=== PATIENT | male | born 1960 | race Caucasian/White ===

== ENCOUNTER → 2017-11-26 | Day surgery (SDC) | payer OTHER ==
[2017-11-19 08:19] VITALS: Ht 167.6 cm; Wt 111.4 kg
[~2017-11-26] VITALS: Ht 167.6 cm; Wt 111.4 kg
[~2017-11-26] MED LIST: ASPCH81X PO; CHOL1000 PO; CYAN100020 PO; DEXAMETHASONE SOD INJ 4 MG/ML VIAL ONE; GLIP-199 PO; LIDOCAINE HCL 1% MPF 5 ML VIAL ONE; LINA1TAB PO; LISI20TA3 PO; METF-384 PO; SIMV80TA2 PO; SODIUM CHLORIDE 0.9% 1000ML 1,000 ML IV SCH
--- NOTE | 2017-11-26 08:11 | History & Physical Bridge - [place] ---
H&P Re-Evaluation Bridge Note: I have examined the patient, reviewed the History & Physical and in the interval since the performance of the History & Physical I have noted the following changes of clinical significance: No changes noted
--- NOTE | 2017-11-26 08:31 | [facility] Post Operative Brief Note ---
Immediate Operative Summary Operative Date Nov 26, 2017. Pre-Operative Diagnosis Facet Arthropathy L5-S1 Bilateral Post-Operative Diagnosis same Procedure(s) Performed Bilateral L5-S1 Facet Injections Surgeon Dr. Francisca Siddiqui Inspector Casing Surgeon(s) 0 Estimated Blood Loss 0 Findings Consistent with Post-Op Diagnosis Specimens none Anesthesia Type Local
--- NOTE | 2017-11-26 08:32 | Discharge Instructions-SurgCtr ---
Discharge Instructions Date of Service Nov 26, 2017. Visit Reason for Visit: Arthropathy Of Spinal Facet Joint, Lumbar Spondylo Discharge Discharge Diagnosis / Problem: same Discharge Goals Goal(s): Improve function Activity Recommendations Activity Limitations: as noted below Lifting Limitations: gradually increase as tolerated Anesthesia . Post Anesthesia Instructions: If you have had General Anesthesia or IV Sedation: * Do not drive today. * Resume driving when surgeon permits. * Do not make important decisions or sign legal documents today. * Call surgeon for: 1. Temperature elevations greater than 101 degrees F. 2. Uncontrollable pain. 3. Excessive bleeding. 4. Persistent nausea and vomiting. 5. Medication intolerance (nausea, vomiting or rash). * For nausea and vomiting use only clear liquids such as: tea, soda, bouillon until nausea subsides, then gradually increase diet as tolerated. * If you have any concerns or questions, call your surgeon's office. If physician is unavailable and it is an emergency, call 911 or go to the nearest emergency room. . Diet Recommendations Home Diet: no limitations Procedures Procedures Performed: Bilateral L5-S1 Facet Injections Pending Studies Studies pending at discharge: no Medical Emergencies . Who to Call and When: Medical Emergencies: If at any time you feel your situation is an emergency, please call 911 immediately. . Non-Emergent Contact Non-Emergency issues call your: Primary Care Provider . . "Provider Documentation" section prepared by Justen Siddiqui. .
[2017-11-26 08:54] VITALS: BP 134/81; PULSE 87; TEMP 36.8; O2SAT 97
--- NOTE | 2017-11-26 09:55 | OPERATIVE REPORT ---
DATE OF OPERATION: 11/26/2017 PREOPERATIVE DIAGNOSIS: Facet joint arthropathy, lumbar spine. POSTOPERATIVE DIAGNOSIS: Facet joint arthropathy, lumbar spine. PROCEDURE: Included facet joint injections, lumbar spine. SURGEON: Justen Siddiqui DO DESCRIPTION OF PROCEDURE: The patient was taken to the minor procedure room and placed prone, prepped and draped sterile. I was able to advance the 22 gauge Tuohy needle to the facet joints bilaterally. I used various angles with a C-arm to locate the facet joint entirety. A 1 mL of dexamethasone was injected in each facet joint without incident. The patient returned to PACU stable. No complications. I attest to the content of the Intraoperative Record and any orders documented therein. Any exception s are noted below.
== END | disposition home or self-care (01) ==
LOC: X.SURG 06:53
PROVIDERS: ATTEND Orthopaedic Surgery Orthopaedic Surgery of the Spine
DX: M43.16 Spondylolisthesis, lumbar region (principal); M12.88 Other specific arthropathies, not elsewhere classified, other specified site; E11.9 Type 2 diabetes mellitus without complications; Z82.49 Family history of ischemic heart disease and other diseases of the circulatory system; Z82.3 Family history of stroke